=== PATIENT | female | born 1960 | race Caucasian/White ===

== ENCOUNTER 2017-05-07 10:00 | Emergency (ER) | payer OTHER ==
--- NOTE | 2017-05-07 11:04 | C.PDOC ---
History Of Present Illness 57 year old female with a past medical history of herniated discs and thyroid disease who presents to the emergency department with a complaint of a back pain that started after plunging a toilet yesterday. Reports pain radiates down to the legs bilaterally (passing the knees) with right leg pain greater than the left leg. Denies urinary symptoms, numbness, weakness, IVDA, saddle anesthesia. Time Seen by Provider: 05/07/17 10:54 Chief Complaint (Nursing): Back Pain History Per: Patient History/Exam Limitations: no limitations Onset/Duration Of Symptoms: Days (x2 days) Current Symptoms Are (Timing): Still Present Past Medical History Reviewed: Historical Data, Nursing Documentation, Vital Signs Vital Signs: Last Vital Signs Temp Pulse Resp 16 05/07/17 11:34 BP Pulse Ox - Medical History PMH: Back Problems (Herniated discs), Hyperthyroidism, Hypothyroidism Surgical History: No Surg Hx Family History: States: Unknown Family Hx - Social History Hx Tobacco Use: Yes Hx Alcohol Use: Yes Hx Substance Use: No - Immunization History Hx Tetanus Toxoid Vaccination: Yes Hx Influenza Vaccination: Yes Hx Pneumococcal Vaccination: Yes Review Of Systems Constitutional: Negative for: Fever, Chills Cardiovascular: Negative for: Chest Pain Respiratory: Negative for: Shortness of Breath Gastrointestinal: Negative for: Vomiting, Abdominal Pain Genitourinary: Negative for: Dysuria, Frequency, Incontinence, Hematuria Musculoskeletal: Positive for: Back Pain Neurological: Negative for: Weakness, Numbness Physical Exam - Physical Exam Appears: Well, Non-toxic Skin: Normal Color, Warm, Dry Head: Atraumatic, Normacephalic Cardiovascular: Rhythm Regular, No Murmur Respiratory: No Decreased Breath Sounds, No Accessory Muscle Use, No Wheezing Gastrointestinal/Abdominal: Soft, No Tenderness Back: No Normal Inspection, Paraspinal Tenderness (Lumbar region) Extremity: No Pedal Edema Pulses: Left Dorsalis Pedis: Normal, Right Dorsalis Pedis: Normal Neurological/Psych: Oriented x3 (Alert), Normal Motor, Normal Sensation, Normal Reflexes, Other (neg babinski. no clonus.) Gait: Steady Disposition Counseled Patient/Family Regarding: Diagnosis, Rx Given - Disposition Disposition: HOME/ ROUTINE Disposition Time: 11:04 Condition: GOOD Additional Instructions: Please follow up with your doctor. Return to the ER for any worsening symptoms, fever, problems with urination, numbness, weakness, or for any other concerns. Prescriptions: Benzonatate [Tessalon Perles] 100 mg PO Q12H PRN #20 sgl PRN Reason: Cough Ibuprofen [Motrin Tab] 800 mg PO Q8H PRN #8 tab PRN Reason: Pain, Moderate (4-7) Lidocaine 5% [Lidoderm] 1 ea TD DAILY PRN #10 patch PRN Reason: Pain, Moderate (4-7) Instructions: Sciatica (ED) Forms: General Discharge Instructions, [facility] (Maltese) - Clinical Impression Clinical Impression: Low back pain
[2017-05-07 11:35] VITALS: RESP 16
== END 2017-05-07 11:30 | disposition home or self-care (01) ==
LOC: C.ER 10:00
DX: M54.5 Low back pain (principal)

== ENCOUNTER 2017-07-22 08:54 | Emergency (ER) | payer OTHER ==
[2017-07-22 09:08] VITALS: TEMP 97.6; O2SAT 98
[2017-07-22] MEDS ORDERED: Naproxen 550 mg Tab PO STA (09:30)
[2017-07-22] MEDS ORDERED: Naproxen 550 mg Tab PO ONE (09:40)
--- NOTE | 2017-07-22 09:56 | RAD ---
HISTORY: COMPARISON: 05/14/2015 TECHNIQUE: Chest PA and lateral FINDINGS: LINES AND TUBES: None. LUNG AND PLEURA: The lungs are well inflated and clear. HEART AND MEDIASTINUM: The heart is not enlarged. The hilar and mediastinal contours are within normal limits. SKELETAL STRUCTURES: The bony structures are within normal limits for the patient's age. VISUALIZED UPPER ABDOMEN: Normal. OTHER FINDINGS: None. IMPRESSION: No active pulmonary disease.
--- NOTE | 2017-07-22 10:11 | C.PDOC ---
History Of Present Illness 57 year old female presents to the ED for evaluation of right upper chest and right shoulder pain which began yesterday. Patient states symptoms are worse with movement of her right shoulder and with taking deep breaths, and sometimes radiates down right arm. She took Ibuprofen yesterday without relief and presents to the ED for further evaluation. Patient denies fever, chills, cough, shortness of breath, and falls/injuries to the site. She also denies cardiac history, h/o Hypertension, Hyperlipidemia, and Diabetes. Time Seen by Provider: 07/22/17 09:10 Chief Complaint (Nursing): Chest Pain History Per: Patient History/Exam Limitations: no limitations Onset/Duration Of Symptoms: Hrs Current Symptoms Are (Timing): Still Present Severity: Mild Quality: "Pain" Exacerbating Factors: Movement (right shoulder ), Deep Breathing Additional History Per: Patient Past Medical History Reviewed: Historical Data, Nursing Documentation, Vital Signs Vital Signs: Last Vital Signs Temp 97.6 F 07/22/17 10:36 Pulse 61 07/22/17 10:36 Resp 18 07/22/17 10:36 BP 131/73 07/22/17 10:36 Pulse Ox 98 07/22/17 10:39 - Medical History PMH: Back Problems (Herniated discs), Hypothyroidism Surgical History: No Surg Hx Family History: States: No Known Family Hx - Social History Hx Tobacco Use: Yes Hx Alcohol Use: No Hx Substance Use: No - Immunization History Hx Tetanus Toxoid Vaccination: Yes Hx Influenza Vaccination: Yes Hx Pneumococcal Vaccination: Yes Review Of Systems Except As Marked, All Systems Reviewed And Found Negative. Constitutional: Negative for: Fever, Chills Cardiovascular: Positive for: Chest Pain (right-sided, upper ). Negative for: Palpitations Respiratory: Negative for: Cough, Shortness of Breath Gastrointestinal: Negative for: Nausea, Vomiting, Abdominal Pain Musculoskeletal: Positive for: Shoulder Pain (right medial aspect ) Physical Exam - Physical Exam Appears: Well, Non-toxic, No Acute Distress Skin: Normal Color, Warm, Dry, No Ecchymosis, No Other (erythema ) Head: Normacephalic Eye(s): bilateral: Normal Inspection Oral Mucosa: Moist Neck: Supple Chest: Symmetrical, No Deformity, Tenderness (to right upper chest wall on palpation ), No Ecchymosis Cardiovascular: Rhythm Regular Respiratory: Normal Breath Sounds, No Rales, No Rhonchi, No Wheezing Gastrointestinal/Abdominal: Normal Exam, Bowel Sounds, Soft, No Tenderness Extremity: Normal ROM (right shoulder, (+) worsening of pain with movement ), Tenderness (to right shoulder on palpation ), No Pedal Edema, No Calf Tenderness , Capillary Refill (<2 seconds all digits ), No Swelling Extremity: Bilateral: Atraumatic, Normal Color And Temperature Pulses: Left Radial: Normal, Right Radial: Normal Neurological/Psych: Oriented x3, Normal Sensation Gait: Steady ED Course And Treatment ECG: Interpreted By Me, Viewed By Me ECG Rhythm: Sinus Rhythm ECG Interpretation: No Acute Changes Interpretation Of ECG: Normal Sinus Rhythm at rate 64bpm. Normal axis. No ST/T wave changes. Rate From EC O2 Sat by Pulse Oximetry: 98 (on RA) Pulse Ox Interpretation: Normal - Other Rad CXR X-Ray: Viewed By Me, Read By Radiologist Interpretation: Accession No. : [id number]. Patient Name / ID : JUDAH BORGES / [id number]. Exam Date : 07/22/2017 09:34:41 ( Approved ). Study Comment : Sex / Age : F / [id number]. Creator : Carin Byrne MD. Dictator : Carin Byrne MD. Canvas Cutter : District Fire Chief : Carin Byrne MD. Approver2 : Report Date : 07/22/2017 09:54:56. My Comment : . HISTORY: COMPARISON: 05/14/2015. TECHNIQUE: Chest PA and lateral. FINDINGS: LINES AND TUBES: None. LUNG AND PLEURA: The lungs are well inflated and clear. HEART AND MEDIASTINUM: The heart is not enlarged. The hilar and mediastinal contours are within normal limits. SKELETAL STRUCTURES: The bony structures are within normal limits for the patient's age. VISUALIZED UPPER ABDOMEN: Normal. OTHER FINDINGS: None. IMPRESSION: No active pulmonary disease. Progress Note: CXR and EKG ordered. Patient given Naproxen PO and Flexeril PO. Reevaluation Time: 10:10 Reassessment Condition: Improved (On reassessment, patient is resting comfortably, showing no signs of distress and reports an improvement in her symptoms. Patient is stable for discharge and is advised to follow up with her PMD within 1-2 days for further evaluation and/or return to the ED if symptoms persist or worsen.) Disposition Counseled Patient/Family Regarding: Studies Performed, Diagnosis, Need For Followup, Rx Given - Disposition Referrals: Tara Ann MD [Medical Doctor] - Disposition: HOME/ ROUTINE Disposition Time: 10:15 Condition: STABLE Prescriptions: Cyclobenzaprine [Flexeril] 10 mg PO BID PRN #15 tab PRN Reason: Muscle Spasm Naproxen 375 mg PO BID PRN #20 tablet PRN Reason: pain Instructions: Muscle Spasms (DC) Forms: [email or web address] (Estonian) Print Language: CHILEAN - POA Present On Arrival: None - Clinical Impression Clinical Impression: Chest wall pain, Muscle spasm - Scribe Statement The provider has reviewed the documentation as recorded by the Scribe (Dary Purvis) Provider Attestation: All medical record entries made by the Scribe were at my direction and personally dictated by me. I have reviewed the chart and agree that the record accurately reflects my personal performance of the history, physical exam, medical decision making, and the department course for this patient. I have also personally directed, reviewed, and agree with the discharge instructions and disposition.
[2017-07-22 10:36] VITALS: BP 131/73; PULSE 61; RESP 18
== END 2017-07-22 10:36 | disposition home or self-care (01) ==
LOC: C.ER 08:54
DX: R07.89 Other chest pain (principal); M62.838 Other muscle spasm

== ENCOUNTER 2018-09-15 10:27 | Outpatient (CLI) | payer OTHER | END 2018-09-15 10:28 | disposition home or self-care (01) | LOC: C.DEXAIC 10:27 | DX: Z13.820 Encounter for screening for osteoporosis (principal) ==